=== PATIENT | female | born 1950 | race Caucasian/White ===

== ENCOUNTER → 2016-08-04 | Outpatient (CLI) | payer OTHER ==
--- NOTE | 2016-08-10 10:28 | MM ---
Reason for exam: screening (asymptomatic). Last mammogram was performed 9 years and 1 month ago. Physical Findings: A clinical breast exam by your physician is recommended on an annual basis and results should be correlated with mammographic findings. MG Screening Mammo w CAD Bilateral CC and MLO view(s) were taken. Prior study comparison: June 28, 2007, mammogram, performed at [facility]. There are scattered fibroglandular densities. There is no discrete abnormality. ASSESSMENT: Negative, BI-RAD 1 RECOMMENDATION: Routine screening mammogram of both breasts in 1 year.
== END | disposition home or self-care (01) ==
LOC: RADMAMWWP 13:51
PROVIDERS: ATTEND Family Medicine
DX: Z12.31 Encounter for screening mammogram for malignant neoplasm of breast (principal)

== ENCOUNTER 2016-08-24 09:52 | Day surgery (SDC) | payer OTHER ==
[2016-08-19 16:13] VITALS: BMI 25.4
--- NOTE | 2016-08-24 08:26 | P.GSHP ---
History of Present Illness H&P Date: 08/24/16 CHIEF COMPLAINT: Colon screen HISTORY OF PRESENT ILLNESS: The patient is a 65-year-old female who presents for colon screen. Lower endoscopy was offered for further evaluation and management. PAST MEDICAL HISTORY: Please see list. PAST SURGICAL HISTORY: Please see list. MEDICATIONS: Please see list. ALLERGIES: Please see list. SOCIAL HISTORY: No illicit drug use FAMILY HISTORY: No reports of Crohn disease or ulcerative colitis. REVIEW OF ORGAN SYSTEMS: CONSTITUTIONAL: No reports of fevers or chills. PHYSICAL EXAM: VITAL SIGNS: Stable GENERAL: Well-developed pleasant in no acute distress. HEENT: No scleral icterus. Extraocular movements grossly intact. Moist buccal mucosa. NECK: Supple without lymphadenopathy. CHEST: Unlabored respirations. Equal bilateral excursions. CARDIOVASCULAR: Regular rate and rhythm. Distal 2+ pulses. ABDOMEN: Soft, nontender, nondistended. MUSCULOSKELETAL: No clubbing, cyanosis, or edema. ASSESSMENT: 1. Colon screen. PLAN: 1. Recommend proceeding with a lower endoscopy Past Medical History Past Medical History: Hypertension History of Any Multi-Drug Resistant Organisms: None Reported Past Surgical History: Section Past Anesthesia/Blood Transfusion Reactions: No Reported Reaction Past Psychological History: No Psychological Hx Reported Smoking Status: Current every day smoker Past Alcohol Use History: Occasional Additional Past Alcohol Use History / Comment(s): smokes about 1ppd since age 18 Past Drug Use History: None Reported - Past Family History Mother History Unknown: Yes Additional Family Medical History / Comment(s): pt adopted Medications and Allergies Home Medications Medication Instructions Recorded Confirmed Type Metoprolol Succinate (ER) [Toprol 50 mg PO DAILY 08/19/16 08/19/16 History Xl] Allergies Allergy/AdvReac Type Severity Reaction Status Date / Time No Known Allergies Allergy Verified 08/19/16 16:08
[~2016-08-24 09:52] MED LIST: LACTATED RINGERS 1,000 ML IV SCH; LIDOCAINE 1% 20 ML VIAL (10MG/ML) FOR IV START INTRADERMA PRN
[2016-08-24 10:42] VITALS: RESP 16; TEMP 96.2
[2016-08-24] MEDS ORDERED: PROPOFOL 10 MG/ML 20 ML VIAL IV ONE (11:24)
--- NOTE | 2016-08-24 12:07 | P.PCN ---
Date of Procedure: 08/24/16 Description of Procedure: PREOPERATIVE DIAGNOSIS: Colonoscopy screening. POSTOPERATIVE DIAGNOSIS: Colonoscopy screening. Hyperplastic colon polyps, multiple. OPERATION: Colonoscopy to the ileocecal valve and appendiceal orifice. Colonoscopy cold forceps biopsies proximal transverse colon. SURGEON: Sherita Simpson MD. ANESTHESIA: MAC. INDICATIONS: The patient is a 65-year-old female who presents for her first colonoscopy screening. She has a history of being adopted and she is unaware of her family history. Benefits and risks were described and informed consent was obtained. DESCRIPTION OF PROCEDURE: The patient had undergone Gatorade, MiraLAX and Dulcolax prep. She had been brought into the operating room and laid in the left lateral decubitus position. After adequate intravenous sedation, the rectum was examined with 2% lidocaine jelly. No external hemorrhoids were encountered. The rectal tone was within normal limits. No lesions were palpated in the rectal vault. An Olympus colonoscope was advanced until the ileocecal valve and appendiceal orifice were clearly viewed. The prep was excellent with clear visualization of the mucosal folds. The scope was removed with visualization of each mucosal fold. No scattered diverticulosis was encountered. Hyperplastic colon polyps were identified along the proximal and mid transverse colon and cold forceps biopsy completion. Size of polyps were between 2-3 mm in size. No evidence of focal colitis was found. Retroflexion of the scope demonstrated grade 1 internal hemorrhoids without active bleeding or inflammation. The colon was desufflated. The patient had tolerated the procedure well. Withdrawal time was over 6 minutes. FINDINGS: No external prolapsed hemorrhoids. Hyperplastic colon polyps were identified along the proximal and mid transverse colon and cold forceps biopsy completion. No focal colitis. No scattered diverticulosis was encountered. RECOMMENDATIONS: Lower endoscopy in 5 years, 2021. Plan - Discharge Summary Discharge Medication List Metoprolol Succinate (ER) [Toprol Xl] 50 mg PO DAILY 08/19/16 [History]
[2016-08-24 12:34] VITALS: BP 185/74; PULSE 54
== END 2016-08-24 12:57 | disposition home or self-care (01) ==
LOC: ORWHC2ENDO 09:52
PROVIDERS: ATTEND Surgery Plastic and Reconstructive Surgery
DX: Z12.11 Encounter for screening for malignant neoplasm of colon (principal); K63.5 Polyp of colon; I10 Essential (primary) hypertension; F17.200 Nicotine dependence, unspecified, uncomplicated; Z79.899 Other long term (current) drug therapy
CPT/HCPCS: 45380; J2704; 88305

== ENCOUNTER → 2016-12-29 | Outpatient (CLI) | payer OTHER ==
[2016-12-29 15:22] LABS: Blood Urea Nitrogen 13 mg/dL (7-17); Non-African American GFR(MDRD) >60 (>60 ml/min/1.73 sqM)
--- NOTE | 2016-12-29 16:04 | CT ---
EXAMINATION TYPE: CT brain wo/w con DATE OF EXAM: 12/29/2016 COMPARISON: NONE HISTORY: Dizziness and facial numbness for [address] DLP: 2291 mGycm Automated exposure control for dose reduction was used. CONTRAST: CT scan of the head is performed without and with IV Contrast, patient injected with 100 mL of Omnipa que 300. FINDINGS: Noncontrast CT shows no acute intracranial hemorrhage or midline shift. Postcontrast image s show no suspicious enhancing intraparenchymal mass. The ventricles and sulci are within normal mathews its in size. The globes are intact and the visualized sinuses are clear. Near complete opacification of left mastoid air cells is present. IMPRESSION: Possible left-sided mastoiditis, clinical correlation advised.
== END ==
LOC: RADCTMAIN 14:52
PROVIDERS: ATTEND Family Medicine
DX: R42 Dizziness and giddiness (principal)
CPT/HCPCS: 82565; 84520; 70470; 36415; Q9967

== ENCOUNTER → 2017-02-03 | Outpatient (CLI) | payer OTHER ==
--- NOTE | 2017-02-20 12:24 | EM ---
EVENT MONITOR AGE:: 66 SEX:: Female. INDICATIONS:: The patient was monitored between the 03 of February and 12 February 2017. The rhythm strip reviewed showed a sinus mechanism with episodes of atrial fibrillation and a rapid ventricular response. Single PVCs were noted. BRIANNA / ISHA: [id number] /
== END | disposition home or self-care (01) ==
LOC: RADECHMAIN 13:04
PROVIDERS: ATTEND Family Medicine
DX: I48.91 Unspecified atrial fibrillation (principal)
CPT/HCPCS: 93270; 93271

== ENCOUNTER → 2017-08-22 | Outpatient (CLI) | payer OTHER ==
--- NOTE | 2017-08-23 10:38 | MM ---
Reason for exam: screening (asymptomatic). Last mammogram was performed 1 year and 1 month ago. History: Patient is postmenopausal. Physical Findings: A clinical breast exam by your physician is recommended on an annual basis and results should be correlated with mammographic findings. MG Screening Mammo w CAD Bilateral CC and MLO view(s) were taken. XCCL view(s) were taken of the right breast. Prior study comparison: August 04, 2016, bilateral MG screening mammo w CAD. June 28, 2007, mammogram, performed at [facility]. There are scattered fibroglandular densities. There is no discrete abnormality. No significant changes when compared with prior studies. ASSESSMENT: Negative, BI-RAD 1 RECOMMENDATION: Routine screening mammogram of both breasts in 1 year.
== END | disposition home or self-care (01) ==
LOC: RADMAMWWP 16:18
PROVIDERS: ATTEND Family Medicine
DX: Z12.31 Encounter for screening mammogram for malignant neoplasm of breast (principal)
CPT/HCPCS: 77067

== ENCOUNTER → 2018-02-12 | Outpatient (CLI) | payer MEDICARE, BC ==
[2018-02-12 14:56] LABS: HCT 50.7 % (34.0-46.0); HGB 16.2 gm/dL (11.4-16.0); MCH 29.7 pg (25.0-35.0); MCV 92.8 fL (80.0-100.0); Mean Platelet Volume 6.6; Platelet Count 303 k/uL (150-450); RBC 5.46 m/uL (3.80-5.40); RDW 13.2 % (11.5-15.5); WBC 11.4 k/uL (3.8-10.6)
[2018-02-12 15:13] LABS: Anion Gap 8 mmol/L; Blood Urea Nitrogen 15 mg/dL (7-17); Carbon Dioxide 22 mmol/L (22-30); Chloride 110 mmol/L (98-107); Potassium 5.4 mmol/L (3.5-5.1); Sodium 140 mmol/L (137-145)
== END | disposition home or self-care (01) ==
LOC: LABPAT 14:18
PROVIDERS: ATTEND Internal Medicine Interventional Cardiology
DX: Z01.812 Encounter for preprocedural laboratory examination (principal); I10 Essential (primary) hypertension; E78.1 Pure hyperglyceridemia; I48.0 Paroxysmal atrial fibrillation
CPT/HCPCS: 36415; 80051; 82565; 84520; 85027

== ENCOUNTER 2019-06-19 09:46 | Day surgery (SDC) | payer BC, MEDICARE ==
[2019-06-17 10:59] VITALS: BMI 26.4
[~2019-06-19 09:46] MED LIST changes: +ALPRAZolam 0.25 MG TAB PO PRN; +ALPRAZolam 0.5 MG TAB PO PRN; +ASPIRIN 325 MG TAB PO STA; +ATORVASTATIN 80 MG TAB PO STA; -LACTATED RINGERS 1,000 ML IV SCH; -LIDOCAINE 1% 20 ML VIAL (10MG/ML) FOR IV START INTRADERMA PRN; +NITROGLYCERIN SL TABS 0.4 MG TAB SUBLINGUAL PRN; +SODIUM CHLORIDE 0.9% 1,000 ML in EMPTY BAG 1 BAG IV ONE
[2019-06-19 10:16] LABS: Basophils % (A) 0 %; Eosinophils # (A) 0.2 k/uL (0-0.7); Eosinophils % (A) 3 %; HCT 48.8 % (34.0-46.0); Lymphocytes # (A) 1.3 k/uL (1.0-4.8); Lymphocytes % (A) 15 %; MCH 29.7 pg (25.0-35.0); MCHC 32.8 g/dL (31.0-37.0); MCV 90.7 fL (80.0-100.0); Mean Platelet Volume 7.5; Monocytes # (A) 0.3 k/uL (0-1.0); Monocytes % (A) 3 %; Neutrophils # (A) 6.7 k/uL (1.3-7.7); Neutrophils % (A) 78 %; Platelet Count 291 k/uL (150-450); RBC 5.38 m/uL (3.80-5.40); WBC 8.6 k/uL (3.8-10.6)
[2019-06-19] MEDS ORDERED: SODIUM CHLORIDE 0.9% 500 ML 500 ML with niCARdipine 6.25 MG, NITROGLYCERIN-D5W PMX 0.05... IV ONE ×4 (10:30)
[2019-06-19] MEDS ORDERED: IV FLUID CONTINUATION 900 ML IV ONE (12:00)
[2019-06-19] MEDS ORDERED: LIDOCAINE 1% INJ 10MG/ML (20 ML MDV) SQ ONE (12:16)
[2019-06-19] MEDS ORDERED: MIDAZOLAM 2 MG/2 ML VIAL IVP ONE (12:16)
[2019-06-19] MEDS ORDERED: fentaNYL (PF) 50 MCG/ML 2 ML AMP IVP ONE (12:18)
[2019-06-19] MEDS ORDERED: HEPARIN SODIUM 1,000 UN/ML (10ML VL) IV ONE (12:19)
[2019-06-19] MEDS: NITROGLYCERIN 1000MCG/10ML SYRINGE INTRAARTER ONE ×3 (12:38→12:45)
[2019-06-19] MEDS: niCARdipine Syringe (1,000 mcg/10 mL) INTRAARTER ONE ×4 (12:38→12:46)
[2019-06-19] MEDS ORDERED: IOPAMIDOL-250 100ML BTL INTRAARTER ONE (13:08)
[2019-06-19] MEDS ORDERED: CLOPIDOGREL 75 MG TAB PO ONE (13:08)
[2019-06-19] MEDS ORDERED: SODIUM CHLORIDE 0.9% 1,000 ML in EMPTY BAG 1 BAG IV SCH (13:15)
--- NOTE | 2019-06-19 13:31 | AN ---
ANGIOGRAPHY REPORT PERCUTANEOUS PERIPHERAL INTERVENTION: DATE OF SERVICE: June 19, 2019 PERFORMING PHYSICIAN: Norris Rosenthal MD. PROCEDURE PERFORMED: 1. Left lower extremity angiogram. 2. Successful balloon angioplasty of the left anterior tibial artery. 3. Successful balloon angioplasty of the mid left SFA. 4. Selective right common femoral artery angiogram. INDICATION: This is a 68-year-old female patient who was experiencing bilateral lower extremities intermittent claudication and underwent a peripheral angiogram which revealed severe femoral-popliteal disease on the right side where she underwent revascularization and critical disease involving the left anterior tibial artery. She was brought today to undergo an intervention on the left leg. APPROACH: Right common femoral artery. COMPLICATION: None. LEVEL OF SEDATION: Moderate with sedation length of sedation length of 42 minutes. PROCEDURE DESCRIPTION: After obtaining an informed consent, the patient was brought to the cardiac lab manager. The right common femoral artery was cannulated using micropuncture technique. Then I placed a 6-Barbadian 11 cm sheath. I did select the left SFA using 0.035 Shawnee Advantage wire with the backup support of 5- Barbadian Rim catheter. After that I did exchange my short sheath into long sheath using 0.035 Shawnee Advantage wire. After that I did leave lower extremity angiogram which revealed critical disease involving the left anterior tibial artery with diffuse disease involving the left SFA and popliteal. I did wire the left anterior tibial artery using 0.[address] wire. I did balloon angioplasty using 2.5 x 40 mm chocolate balloon. The following angiogram showed excellent angiographic results. I did after that a completion picture to check the left SFA and that was dissection in the left SFA. I decided to balloon that. I used the same chocolate balloon which was 2 5 x 40 mm. I ended with some residual dissection, but not flow limiting. After that I exchanged my long sheath into short sheath using 0.035 Shawnee Advantage wire and the procedure was completed without any complication. POSTPROCEDURE MANAGEMENT: 1. Dual antiplatelet therapy. 2. Risk factor modifications. 3. Follow up with the patient. MMODL / IJN: [id number] /
--- NOTE | 2019-06-19 13:57 | IR ---
Fluoroscopy HISTORY: Peripheral vascular disease 11.7 minutes fluoroscopy time supplied to the referring clinician. 313 intraoperative C-arm images d ocument the procedure. See dictated report from cardiology.
[2019-06-19] MEDS ORDERED: METOPROLOL SUCCINATE (ER) 50 MG TAB.ER.24H PO SCH (20:00)
[2019-06-19 22:05] VITALS: RESP 18
[2019-06-20] MEDS: ATORVASTATIN 40 MG TAB PO SCH ×2 (02:27→09:37)
[2019-06-20 06:35] LABS: Basophils % (A) 0 %; Eosinophils # (A) 0.1 k/uL (0-0.7); Eosinophils % (A) 1 %; HCT 43.6 % (34.0-46.0); HGB 14.1 gm/dL (11.4-16.0); Lymphocytes # (A) 0.8 k/uL (1.0-4.8); Lymphocytes % (A) 10 %; MCH 29.6 pg (25.0-35.0); MCHC 32.3 g/dL (31.0-37.0); MCV 91.5 fL (80.0-100.0); Mean Platelet Volume 7.4; Monocytes # (A) 0.5 k/uL (0-1.0); Monocytes % (A) 6 %; Neutrophils # (A) 7.1 k/uL (1.3-7.7); Neutrophils % (A) 82 %; Platelet Count 249 k/uL (150-450); RBC 4.76 m/uL (3.80-5.40); WBC 8.7 k/uL (3.8-10.6)
[2019-06-20 06:44] LABS: African American GFR (CKD) >90 (>60 ml/min/1.73 sqM); Anion Gap 6 mmol/L; Blood Urea Nitrogen 10 mg/dL (7-17); Calcium 8.6 mg/dL (8.4-10.2); Carbon Dioxide 20 mmol/L (22-30); Chloride 112 mmol/L (98-107); Glucose 94 mg/dL (74-99); Non-African American GFR(CKD) >90 (>60 ml/min/1.73 sqM); Sodium 138 mmol/L (137-145)
[2019-06-20] MEDS ORDERED: DILTIAZEM CD 180 MG CAP.ER.24H PO SCH (09:00)
[2019-06-20] MEDS ORDERED: CLOPIDOGREL 75 MG TAB PO SCH (09:30)
[2019-06-20] MEDS ORDERED: ASPIRIN 81 MG PO SCH (09:30)
[2019-06-20 09:58] VITALS: BP 171/95; PULSE 89; TEMP 98
--- NOTE | 2019-06-20 12:21 | P.DS ---
Providers Date of admission: 06/19/2019 Attending physician: Norris Rosenthal Primary care physician: [facility] Course: This is a pleasant 68-year-old female patient was admitted to the hospital yesterday and underwent successful balloon angioplasty of the left anterior tibial artery. The procedure was performed from the right groin which is soft and nontender and without any bruises. The patient's going to be discharged home on aspirin as well as oral anticoagulation. I will follow-up with the patient next week in the office. Patient Condition at Discharge: Stable Plan - Discharge Summary Discharge Rx Participant: No New Discharge Prescriptions: New Clopidogrel [Plavix] 75 mg PO DAILY #30 tab Continue Metoprolol Succinate (ER) [Toprol XL] 50 mg PO 1999 Atorvastatin [Lipitor] 40 mg PO DAILY Apixaban [Eliquis] 5 mg PO BID Diltiazem HCl [Diltiazem HCl 24Hr ER (CD)] 180 mg PO DAILY Aspirin 81 mg PO ONCE Discharge Medication List Metoprolol Succinate (ER) [Toprol XL] 50 mg PO 199908/19/16 [History] Apixaban [Eliquis] 5 mg PO BID 03/01/18 [History] Atorvastatin [Lipitor] 40 mg PO DAILY 03/01/18 [History] Diltiazem HCl [Diltiazem HCl 24Hr ER (CD)] 180 mg PO DAILY 06/17/19 [History] Aspirin 81 mg PO ONCE 06/19/19 [History] Clopidogrel [Plavix] 75 mg PO DAILY #30 tab 06/20/19 [Rx] Follow up Appointment(s)/Referral(s): Norris Rosenthal MD [STAFF PHYSICIAN] - 06/27/19 11:30 am Patient Instructions/Handouts: How to Stop Smoking (DC), Peripheral Vascular Angioplasty (DC) Activity/Diet/Wound Care/Special Instructions: 1. Support your puncture site by applying firm, steady pressure whenever you cough, laugh, sneeze or bear down to have a bowel movement (2-day restriction). 2. Watch for any excessive bruising, active bleeding, a firm knot forming under your skin, extreme tenderness and signs of infection (redness, swelling, fever). 3. Shower daily, do not soak puncture in a tub bath, jacuzzi, pool, castro etc. for 1 week. This is to prevent risk of infection. 4. Drink plenty of fluids the day of and day after your procedure to flush contrast dye out of your kidneys. 5. Take all medications as directed. Never stop any new medication without your physicians OK. 6. No driving for 2 days after procedure. 7. 10- pound weight lifting restriction for 1 week. 8. Low sodium/low fat diet. 9. Activity limited until follow up appointment with your traffic control signaler. In case of any problems, please call [facility] [place] @ [phone]. Discharge Disposition: HOME SELF-CARE
[2019-06-20] MEDS ORDERED: APIXABAN 5 MG TAB PO SCH (21:00)
== END 2019-06-20 11:41 | disposition home or self-care (01) ==
LOC: CATHCVL 09:46 → 3SCARD 15:39 → CATHCVL 06-20 11:41
PROVIDERS: ATTEND Internal Medicine Interventional Cardiology
DX: I70.212 Atherosclerosis of native arteries of extremities with intermittent claudication, left leg (principal); I77.77 Dissection of artery of lower extremity; I48.0 Paroxysmal atrial fibrillation; E78.5 Hyperlipidemia, unspecified; F17.200 Nicotine dependence, unspecified, uncomplicated; I34.0 Nonrheumatic mitral (valve) insufficiency; Z82.49 Family history of ischemic heart disease and other diseases of the circulatory system; Z79.01 Long term (current) use of anticoagulants; Z79.02 Long term (current) use of antithrombotics/antiplatelets; Z79.82 Long term (current) use of aspirin; Z79.899 Other long term (current) drug therapy; Z88.0 Allergy status to penicillin; Z88.8 Allergy status to other drugs, medicaments and biological substances
CPT/HCPCS: 37224; 37228; 80048; 85025 ×2; C1894 ×3; C1769 ×5; C1725; J2250; J2001; J3010; J1644; Q9966

== ENCOUNTER → 2021-04-13 | Outpatient (CLI) | payer MEDICARE ==
--- NOTE | 2021-04-13 12:18 | XR ---
EXAMINATION TYPE: XR chest 2V DATE OF EXAM: 04/13/2021 COMPARISON: NONE TECHNIQUE: PA and lateral views submitted. HISTORY: Abnormal lung sounds FINDINGS: The lungs are clear and there is no pneumothorax, pleural effusion, or focal pneumonia. Heart size n ormal. No overt failure hypertrophic change of the spine. IMPRESSION: 1. No acute process.
== END | disposition home or self-care (01) ==
LOC: RADXRMAIN 12:02
PROVIDERS: ATTEND Family Medicine
DX: R09.89 Other specified symptoms and signs involving the circulatory and respiratory systems (principal)
CPT/HCPCS: 71046

== ENCOUNTER 2024-05-15 05:48 | Day surgery (SDC) | payer MEDICARE ==
[2024-05-13 16:19] VITALS: BMI 28.3
[~2024-05-15 05:48] MED LIST changes: -ASPIRIN 325 MG TAB PO STA; -ATORVASTATIN 80 MG TAB PO STA; -NITROGLYCERIN SL TABS 0.4 MG TAB SUBLINGUAL PRN; -SODIUM CHLORIDE 0.9% 1,000 ML in EMPTY BAG 1 BAG IV ONE; +ZOLPIDEM 5 MG TAB PO PRN
[2024-05-15] MEDS: SODIUM CHLORIDE 0.9% 1,000 ML in EMPTY BAG 1 BAG IV ONE (06:13)
[2024-05-15] MEDS: IV FLUID CONTINUATION 1,000 ML IV ONE (06:13)
[2024-05-15 06:25] LABS: Basophils % (A) 0 %; Eosinophils # (A) 0.2 k/uL (0-0.7); Eosinophils % (A) 2 %; HCT 43.1 % (34.0-46.0); Lymphocytes # (A) 1.1 k/uL (1.0-4.8); Lymphocytes % (A) 14 %; MCH 31.7 pg (25.0-35.0); MCHC 34.7 g/dL (31.0-37.0); MCV 91.5 fL (80.0-100.0); Mean Platelet Volume 7.2; Monocytes # (A) 0.4 k/uL (0-1.0); Monocytes % (A) 5 %; Neutrophils # (A) 6.2 k/uL (1.3-7.7); Neutrophils % (A) 78 %; Platelet Count 363 k/uL (150-450); RBC 4.72 m/uL (3.80-5.40); RDW 13.6 % (11.5-15.5); WBC 7.9 k/uL (3.8-10.6)
[2024-05-15 06:41] LABS: African American GFR (CKD) >90 (>60 ml/min/1.73 sqM); Anion Gap 11 mmol/L; Blood Urea Nitrogen 6 mg/dL (7-17); Calcium 9.3 mg/dL (8.4-10.2); Carbon Dioxide 20 mmol/L (22-30); Chloride 105 mmol/L (98-107); Glucose 106 mg/dL (74-99); Non-African American GFR(CKD) 86 (>60 ml/min/1.73 sqM); Potassium 4.3 mmol/L (3.5-5.1); Sodium 136 mmol/L (137-145)
[2024-05-15] MEDS ORDERED: ASPIRIN 325 MG TAB PO PRN (07:00)
[2024-05-15] MEDS ORDERED: HEPARIN SODIUM,PORCINE (1 ML) 2,500 UNIT in SODIUM CHLORIDE 0.9% 250 ML IRRIGATION PRN (07:00)
[2024-05-15] MEDS: HEPARIN SODIUM,PORCINE 10,000 UNIT in SODIUM CHLORIDE 0.9% 1,000 ML IRRIGATION PRN (07:57)
[2024-05-15] MEDS: fentaNYL (PF) 50 MCG/ML 2 ML AMP IVP ONE (08:03)
[2024-05-15] MEDS: MIDAZOLAM 2 MG/2 ML VIAL IVP ONE (08:03)
[2024-05-15] MEDS: LIDOCAINE 1% INJ 10MG/ML (20 ML MDV) SQ ONE (08:24)
[2024-05-15] MEDS: HEPARIN SODIUM 1,000 UN/ML (10ML VL) IV ONE (08:39)
[2024-05-15] MEDS: CLOPIDOGREL 75 MG TAB PO ONE (08:45)
[2024-05-15] MEDS: HYDROmorphone 0.5 MG/0.5 ML SYRINGE IVP ONE (09:00)
[2024-05-15] MEDS: NITROGLYCERIN 1000MCG/10ML SYRINGE INTRAARTER ONE (09:04)
[2024-05-15] MEDS: niCARdipine Syringe (1,000 mcg/10 mL) INTRAARTER ONE (09:05)
[2024-05-15] MEDS: SODIUM CHLORIDE 0.9% 1,000 ML IV ONE (09:14)
[2024-05-15] MEDS: IOPAMIDOL-250 100ML BTL INTRAARTER ONE (09:14)
[2024-05-15] MEDS ORDERED: NALOXONE 0.4 MG/ML 1 ML VIAL IVP PRN (09:18)
--- NOTE | 2024-05-15 09:26 | P.PCN ---
Date of Procedure: 05/15/24 Operative Findings: An abdominal aortogram and bilateral lower extremities runoff and TELEVISION PRODUCER PERFORMING PHYSICIAN: Norris Rosenthal MD PROCEDURE PERFORMED: 1. An abdominal aortogram 2. Bilateral lower extremities runoff 3. Successful balloon angioplasty of the right SFA with adjunctive use of IVUS and atherectomy using the Hawk 1 device 4. Ultrasound-guided access of the left common femoral artery INDICATION: Symptomatic 73-year-old female patient who is known to have PAD with prior angioplasty of bilateral SFA and she was experiencing right lower extremity intermittent claudication with arterial duplex study showed severe disease involving the right SFA with intermittent claudication was interfering with her daily activities and consistent with Hayley class IIa COMPLICATION: None LEVEL OF SEDATION: Moderate was sedation length of 16 minutes APPROACH: Right common femoral artery PROCEDURE DESCRIPTION: After obtaining informed consent and explaining the procedure benefits, risks, and complications, the patient was brought to the cardiac paint laboratory technician. The left groin was prepped and draped in sterile fashion. The left common femoral artery was cannulated using micropuncture technique, under ultrasound guidance. A micropuncture wire was advanced, and the micropuncture sheath was advanced over the wire, then the micropuncture sheath was exchanged over an 0.35 wire into a 5-Albanian sheath dilator assembly then the wire and dilator were removed and sheath was flushed. We did an abdominal aortogram and bilateral lower extremities runoff using 5- Albanian pigtail catheter using a power injection. The catheter was initially placed at the level of the renal arteries, and it was pulled into above the bifurcation of the aorta into right and left common iliac arteries. Subsequently I decided to intervene on the right SFA. At that point I did go up and over to the right SFA using a 3 5 stiff Glidewire with the backup support of 5 Albanian rim catheter. Subsequently the 11 cm 5 Albanian sheath was exchanged over a 035 stiff Glidewire into a 70 cm 6 Albanian sheath. That was performed over the 035 stiff Glidewire. Subsequently I did wire to the right SFA using a 014 wire. I did IVUS which revealed a diameter around 4 mm with diffuse severe stenosis involving the Denovo section of the right SFA as well as the stented segment. Subsequently I did atherectomy using the Hawk 1 device. I did after that balloon angioplasty using 4 mm Christy balloon with subsequently 4 mm DCB was performed with final results showing excellent angiographic results and the procedure was completed with no complication. By the end I did selective left common femoral artery angiogram. The procedure was completed and there was no complications. SELECTIVE PERIPHERAL ANGIOGRAM: The abdominal aorta: Small with mild disease only The common iliac arteries: Appears to have mild disease only The external iliac arteries: They have mild disease only The internal iliac arteries: Are patent The common femoral arteries: Appears to have mild disease only Superficial femoral arteries: The right SFA has severe de miguel and in-stent restenosis. The left SFA has mild disease only Popliteal arteries: Both popliteal appear to have mild disease only Below the knees: The arteries below the knee were poorly visualized CONCLUSION: Severe disease involving the right SFA with de miguel disease and in-stent restenosis. I did perform successful TELEVISION PRODUCER of the right SFA as described above POSTPROCEDURE MANAGEMENT: Smoking cessation Dual antiplatelet therapy Follow-up with the patient
[2024-05-15] MEDS: SODIUM CHLORIDE 0.9% 1,000 ML in EMPTY BAG 1 BAG IV SCH (14:19)
[2024-05-15] MEDS: ACETAMINOPHEN TAB 325 MG TAB PO PRN (17:24)
[2024-05-15] MEDS: ATORVASTATIN 80 MG TAB PO SCH (20:10)
[2024-05-15] MEDS: DILTIAZEM CD 180 MG CAP.ER.24H PO SCH (20:10)
[2024-05-15] MEDS: cilostazoL 100 MG TAB PO SCH (20:10)
[2024-05-15] MEDS: PREGABALIN 100 MG CAP PO SCH (20:10)
[2024-05-16 06:30] LABS: African American GFR (CKD) >90 (>60 ml/min/1.73 sqM); Non-African American GFR(CKD) 89 (>60 ml/min/1.73 sqM)
--- NOTE | 2024-05-16 07:20 | IR ---
EXAMINATION TYPE: IR angio abdominal w runoff DATE OF EXAM: 05/15/2024 5:21 PM COMPARISON: Pre Operative Images if available both CT/MRI or plain film CLINICAL INDICATION: Female, 73 years old with history of RT Leg pain, 9.2min 23.2 DAP; TECHNIQUE: IR angio abdominal w runoff, multiple fluoroscopic images provided for procedure. Total fluoroscopy time: 9.1 minutes Total submitted images to PACS: [id number] DAP: 23.2 mGym2 Gycm2 uGym2 cGycm2 or equivalent. FINDINGS: IMPRESSION: 1. No evidence for intraoperative complication. 2. Please see the operative/procedural note for further details. [facility], , 05/16/2024 7:18 AM
[2024-05-16 07:47] VITALS: BP 144/84; PULSE 83; RESP 16; TEMP 97.9
--- NOTE | 2024-05-16 08:20 | P.DS ---
Providers Attending physician: Norris Rosenthal Primary care physician: [facility] Course: The patient is a pleasant 73-year-old female patient was admitted to the hospital yesterday and underwent successful angioplasty of the right SFA She was seen and evaluated this morning. She is asymptomatic and hemodynamically stable. The groin is soft and nontender with no bruises Patient is going to be discharged home on dual antiplatelet therapy and anticoagulation and she will be seen in the office Plan - Discharge Summary Discharge Rx Participant: No New Discharge Prescriptions: Continue Metoprolol Succinate (ER) [Toprol XL] 100 mg PO DAILY Atorvastatin [Lipitor] 80 mg PO HS Apixaban [Eliquis] 5 mg PO BID dilTIAZem HCL [dilTIAZem HCL 24Hr ER (CD)] 180 mg PO BID Aspirin 81 mg PO DAILY cilostazoL [Pletal] 100 mg PO BID Pregabalin [Lyrica] 100 mg PO BID Ergocalciferol [Vitamin D2 (1250 Mcg = 95777 Iu)] 50,000 unit PO Q30D Alendronate Sodium [Fosamax] 70 mg PO WEEKLY Losartan Potassium 50 mg PO DAILY Discharge Medication List Metoprolol Succinate (ER) [Toprol XL] 100 mg PO DAILY 08/19/16 [History] Apixaban [Eliquis] 5 mg PO BID 03/01/18 [History] Atorvastatin [Lipitor] 80 mg PO HS 03/01/18 [History] dilTIAZem HCL [dilTIAZem HCL 24Hr ER (CD)] 180 mg PO BID 06/17/19 [History] Aspirin 81 mg PO DAILY 06/19/19 [History] cilostazoL [Pletal] 100 mg PO BID 05/27/22 [History] Alendronate Sodium [Fosamax] 70 mg PO WEEKLY 05/13/24 [History] Ergocalciferol [Vitamin D2 (1250 Mcg = 51223 Iu)] 50,000 unit PO Q30D 05/13/24 [History] Losartan Potassium 50 mg PO DAILY 05/13/24 [History] Pregabalin [Lyrica] 100 mg PO BID 05/13/24 [History] Follow up Appointment(s)/Referral(s): Norris Rosenthal MD [STAFF PHYSICIAN] - 1 Week
[2024-05-16] MEDS: CLOPIDOGREL 75 MG TAB PO SCH (09:03)
[2024-05-16] MEDS: ASPIRIN 81 MG PO SCH (09:03)
[2024-05-16] MEDS: LOSARTAN 50 MG TAB PO SCH (09:03)
[2024-05-16] MEDS: METOPROLOL SUCCINATE (ER) 100 MG TAB.ER.24H PO SCH (09:03)
[2024-05-22] MEDS ORDERED: NON FORMULARY DRUG (Alendronate Sodium [Fosamax] 70 MG Tablet) PO SCH (09:00)
[2024-05-22] MEDS ORDERED: ERGOCALCIFEROL 1,250 MCG (50,000 IU) CAPSULE PO SCH (09:00)
== END 2024-05-16 09:52 | disposition home or self-care (01) ==
LOC: CATHCVL 05:48 → 6NMEDSUR 09:10 → CATHCVL 05-16 09:52
PROVIDERS: ATTEND Internal Medicine Interventional Cardiology
DX: I73.9 Peripheral vascular disease, unspecified (principal); I48.0 Paroxysmal atrial fibrillation; I27.20 Pulmonary hypertension, unspecified; E78.5 Hyperlipidemia, unspecified; F17.210 Nicotine dependence, cigarettes, uncomplicated; Z88.0 Allergy status to penicillin; Z82.49 Family history of ischemic heart disease and other diseases of the circulatory system; Z79.82 Long term (current) use of aspirin; Z79.02 Long term (current) use of antithrombotics/antiplatelets; Z79.899 Other long term (current) drug therapy
CPT/HCPCS: 37225; 75625; 75716; 37252; 80048; 82565; 85025; C1894 ×3; C1769 ×3; C1714; C1753; C2623; J2250; J1644 ×2; J2003; J3010; J1171; Q9966; J2305